=== PATIENT | female | born 1950 | race Caucasian/White ===

== ENCOUNTER 2019-08-17 09:48 | Emergency (ER) | payer MEDICARE, OTHER ==
[~2019-08-17] VITALS: Ht 167.6 cm; Wt 56.7 kg
--- OUTSIDE RECORDS SUMMARY | ~2019-08-17 | XMS | Clinical Summary ---
Demographics + + + | Address | [address] | | | [place] [address] | + + + | Home Phone | | + + + | Preferred Language | Unknown | + + + | Marital Status | | + + + | Zoroastrian Affiliation | 1013 | + + + | Race | Unknown | + + + | Ethnic Group | Unknown | + + + Author + + + | Author | [facility] | | | and Leifana | + + + | Organization | [facility] | | | and [place] | + + + | Address | Unknown | + + + | Phone | Unavailable | + + + Support + + +---------+ + | Name | Relationship | Address | Phone | + + +---------+ + | Keyonna Quesada | ECON | Unknown | | + + +---------+ + Care Team Providers + +------+ + | Care Attorney Name | Role | Phone | + +------+ + | Nely Reed | PCP | | | PA-C | | | + +------+ + Allergies + + + +--------+ + | Active Allergy | Reactions | Severity | Noted | Comments | | | | | Date | | + + + +--------+ + | Oxcarbazepine | | | | | + + + +--------+ + | Sulfa Antibiotics | Hives, Rash | Low | | | + + + +--------+ + Medications + + + +---------+------+------+-------+ | Medication | Sig | Dispensed | Refills | Star | End | Statu | | | | | | t | Date | s | | | | | | Date | | | + + + +---------+------+------+-------+ | estradiol | 25mcg two times a | | 0 | 09/1 | | Activ | | (VAGIFEM) 25 MCG | week for estrogen | | | 3/20 | | e | | vaginal tablet | treatment | | | 12 | | | + + + +---------+------+------+-------+ | traZODone | 2 by mouth at | | 0 | 09/1 | | Activ | | (DESYREL) 100 mg | bedtime | | | 3/20 | | e | | tablet | | | | 12 | | | + + + +---------+------+------+-------+ | citalopram | Take 20 mg by mouth | | 0 | | | Activ | | (CELEXA) 20 mg | Daily. | | | | | e | | tablet | | | | | | | + + + +---------+------+------+-------+ | clonazePAM | Take 0.5 mg by mouth | | 0 | | | Activ | | (KLONOPIN) 0.5 mg | Twice daily as | | | | | e | | tablet | needed for Anxiety. | | | | | | + + + +---------+------+------+-------+ | gabapentin | Take 600 mg by mouth | | 0 | | | Activ | | (NEURONTIN) 600 MG | 2 times daily. | | | | | e | | tablet | | | | | | | + + + +---------+------+------+-------+ | ziprasidone | Take 60 mg by mouth | | 0 | | | Activ | | (GEODON) 60 MG | nightly. | | | | | e | | capsule | | | | | | | + + + +---------+------+------+-------+ | lubiprostone | Take 1 capsule by | 60 | 5 | 08/1 | | Activ | | (AMITIZA) 24 mcg | mouth 2 times daily | capsule | | 2/20 | | e | | capsule | (with breakfast & | | | 19 | | | | | dinner). | | | | | | + + + +---------+------+------+-------+ Active Problems + + + | Problem | Noted Date | + + + | DIVERTICULOSIS OF COLON | | + + + | DEPRESSION | | + + + | BIPOLAR DISORDER UNSPECIFIED | | + + + + + | Overview: ICD-10 Record update | + + + +---+ | OBSESSIVE-COMPULSIVE DISORDER | | + +---+ | FAMILY HISTORY COLONIC POLYPS | | + +---+ Encounters +--------+ + + + + | Date | Type | Specialty | Care Team | Description | +--------+ + + + + | 06/26/ | Orders Only | Gastroenterology | Merrick Batista MD | | | 2019 | | | | | +--------+ + + + + from Last 3 Months Family History + + +------+ + | Medical History | Relation | Name | Comments | + + +------+ + | Hypertension | Father | | | + + +------+ + | Prostate cancer | Father | | | + + +------+ + | Macular degen | Mother | | | + + +------+ + | Other (see comment) | Mother | | Idiopathic pulmonary fibrosis (fatal) | + + +------+ + | Breast cancer | Sister | | | + + +------+ + + +------+ + + | Relation | Name | Status | Comments | + +------+ + + | Father | | | | + +------+ + + | Mother | | | | + +------+ + + | Sister | | Alive | | + +------+ + + | Sister | | Alive | | + +------+ + + Social History + + + +--------+ + | Tobacco Use | Types | Packs/Day | Years | Date | | | | | Used | | + + + +--------+ + | Former Smoker | Cigarettes | 3 | | Quit: 1989 | + + + +--------+ + + +---+---+---+ | Smokeless Tobacco: | | | | | Never Used | | | | + +---+---+---+ + + +---------+ + | Alcohol Use | Drinks/We | oz/Week | Comments | | | ek | | | + + +---------+ + | Yes | | | Rare | + + +---------+ + + + + | Sex Assigned at | Date Recorded | | | | + + + | Not on file | | + + + + + + + | Job Start Date | Occupation | Industry | + + + + | Not on file | Not on file | Not on file | + + + + + + + + | Travel History | Travel Start | Travel End | + + + + + + | No recent travel history available. | + + Last Filed Vital Signs + + + + | Vital Sign | Reading | Time Taken | + + + + | Blood Pressure | 130/70 | 03/15/20181313 PDT | + + + + | Pulse | 89 | 03/15/20181313 PDT | + + + + | Temperature | - | - | + + + + | Respiratory Rate | 16 | 03/15/20181313 PDT | + + + + | Oxygen Saturation | - | - | + + + + | Inhaled Oxygen | - | - | | Concentration | | | + + + + | Weight | 60.2 kg (132 lb 11.5 | 03/15/20181313 PDT | | | oz) | | + + + + | Height | 166.4 cm (5' 5.5") | 03/15/20181313 PDT | + + + + | Body Mass Index | 21.75 | 03/15/20181313 PDT | + + + + Plan of Treatment + + + + + | Health Maintenance | Due Date | Last Done | Comments | + + + + + | Hepatitis C | | | | | Screening | 1 | | | + + + + + | Vaccine: | | | | | Dtap/Tdap/Td (1 - | 0 | | | | Tdap) | | | | + + + + + | Vaccine: Zoster (1 | | | | | of 2) | 1 | | | + + + + + | Breast Cancer | | | | | Screening | 6 | | | + + + + + | Adult Annual | | | | | Wellness Visit | 5 | | | + + + + + | Vaccine: | | | | | Pneumococcal 65+ | 6 | | | | Low/Medium Risk (1 | | | | | of 2 - PCV13) | | | | + + + + + | Vaccine: Influenza | | | | | (#1) | 9 | | | + + + + + | Colorectal Cancer | | 11/15/2010, 08/24/2008 | | | Screening | 1 | | | | (Colonoscopy) | | | | + + + + + Results Not on filefrom Last 3 Months Insurance + +--------+ +--------+ +---------+--------+ | Payer | Benefi | Subscriber | Effect | Phone | Address | Type | | | t Plan | ID | timo | | | | | | / | | Dates | | | | | | Group | | | | | | + +--------+ +--------+ +---------+--------+ | MEDICARE | MEDICA | [id number] | 06/15/20 | [phone] | | Medica | | | RE | | 16-Pre | 5 | | re | | | PART A | | sent | | | | | | AND B | | | | | | + +--------+ +--------+ +---------+--------+ + +--------+ +--------+ + + | Guarantor Name | Accoun | Relation to | Date | Phone | Billing Address | | | t Type | Patient | of | | | | | | | | | | + +--------+ +--------+ + + | Tracee Ortiz | Person | Self [birth year] | [address] | | | al/Fam | | 1950 | [phone] | [place] [address] | | | [place] | | | 7 (Home) | | | | | | | [phone] | | | | | | | 1 (Work) | | + +--------+ +--------+ + + Advance Directives Patient has advance care planning documents on file. For more information, please contact:[facility] [place] [address]
--- OUTSIDE RECORDS SUMMARY | ~2019-08-17 | XMS | Encounter Summary ---
Demographics + + + | Address | [address] | | | [place] [address] | + + + | Home Phone | | + + + | Preferred Language | Unknown | + + + | Marital Status | Single | + + + | Confucianist Affiliation | Unknown | + + + | Race | White | + + + | Ethnic Group | Not or | + + + Author + + + | Author | [facility] | + + + | Organization | [facility] | + + + | Address | Unknown | + + + | Phone | Unavailable | + + + Support + + +---------+ + | Name | Relationship | Address | Phone | + + +---------+ + | Shaunna Ramirez | ECON | Unknown | | + + +---------+ + Care Team Providers + +------+ + | Care Manager Creative Name | Role | Phone | + +------+ + | Fransico Thomson MD | PCP | Unavailable | + +------+ + Encounter Details +--------+ + + + + | Date | Type | Department | Care Team | Description | +--------+ + + + + | 04/17/ | Document-Sc | UNKNOWN DEPARTMENT | Unknown . | | | 2012 | anned | [address] | | | | | | [address] | | | | | | [place], [place] | | | | | | [address] | | | +--------+ + + + + Social History + +-------+ +--------+------+ | Tobacco Use | Types | Packs/Day | Years | Date | | | | | Used | | + +-------+ +--------+------+ | Never Assessed | | | | | + +-------+ +--------+------+ + + + | Sex Assigned at [...] recent travel history available. | + + documented as of this encounter Plan of Treatment Not on filedocumented as of this encounter Procedures + +--------+ + + + | Procedure Name | Priori | Date/Time | Associated Diagnosis | Comments | | | ty | | | | + +--------+ + + + | RADIOLOGY | | 04/17/2013 | | Results for this | | | | 12:00 AM | | procedure are in the | | | | PDT | | results section. | + +--------+ + + + documented in this encounter Results RADIOLOGY (04/17/2013 12:00 AM PDT) + + + | Narrative | Performed At | + + + | | | | | | + + + + + | Procedure Note | + + | Viet Lima - 05/16/2013 1:21 PM PDT | + + documented in this encounter Visit Diagnoses Not on filedocumented in this encounter"
--- OUTSIDE RECORDS SUMMARY | ~2019-08-17 | XMS | Encounter Summary ---
Demographics + + + | Address | [address] | | | [place] [address] | + + + | Home Phone | | + + + | Preferred Language | Unknown | + + + | Marital Status | Single | + + + | Quaker Affiliation | Unknown | + + + | Race | White | + + + | Ethnic Group | Not or | + + + Author + + + | Author | [facility] | + + + | Organization | [facility] | + + + | Address | Unknown | + + + | Phone | Unavailable | + + + Support + + +---------+ + | Name | Relationship | Address | Phone | + + +---------+ + | Shaunna Ramirez | ECON | Unknown | | + + +---------+ + Care Team Providers + +------+ + | Care Station Attendant Name | Role | Phone | + [...] [address] | | | | | | [place], [place] | | | | | | [address] | | | +--------+ + + + [...]
--- OUTSIDE RECORDS SUMMARY | ~2019-08-17 | XMS | Clinical Summary ---
Demographics + + + | Address | [address] | | | [place] [address] | + + + | Home Phone | | + + + | Preferred Language | Unknown | + + + | Marital Status | | + + + | Zoroastrianism Affiliation | 1013 | + + + | Race | Unknown | + + + | Ethnic Group | Unknown | + + + Author + + + | Author | [facility] | | | and Leifana | + + + | Organization | [facility] | | | and [place]ana | [...] Team Providers + +------+ + | Care Political Anthropologist Name | Role | Phone | + [...] +--------+ +---------+--------+ | MEDICARE | MEDICA | [id number] | 06/15/20 | [phone] | | Medica [...] | | al/Fam | | 1950 | [phone] | [place] [address] | | | [place] | | | 7 (Home) | | | | | | | [phone] | | | | | | | 1 (Work) | | + +--------+ +--------+ + + Advance Directives Patient has advance care planning documents on file. For more information, please contact:[facility] [place] [address]
--- OUTSIDE RECORDS SUMMARY | ~2019-08-17 | XMS | Encounter Summary ---
Demographics + + + | Address | [address] | | | [place] [address] | + + + | Home Phone | | + + + | Preferred Language | Unknown | + + + | Marital Status | | + + + | Mormonism Affiliation | 1013 | + + + | Race | Unknown | + + + | Ethnic Group | Unknown | + + + Author + + + | Author | [facility] | | | and Leifana | + + + | Organization | [facility] | | | and Leifana [...] Team Providers + +------+ + | Care Windows Application Packager Name | Role | Phone | + +------+ + | Nely Reed | PCP | | | PA-C | | | + +------+ + Encounter Details +--------+ + + + + | Date | Type | Department | Care Team | Description | +--------+ + + + + | 06/26/ | Orders Only | [facility] | Merrick Batista MD | | | 2019 | | GASTROENTEROLOGY | [address] | | | | | [address] [place] | [address] | | | | | [address] [place], [place] | [address] | | | | | [address] | | | | | | [phone] | | | +--------+ + + + + Social History + + + [...] Not on filedocumented as of this encounter Visit Diagnoses Not on filedocumented in this encounter"
--- OUTSIDE RECORDS SUMMARY | ~2019-08-17 | XMS | Encounter Summary ---
Demographics + + + | Address | [address] | | | [place] [address] | + + + | Home Phone | | + + + | Preferred Language | Unknown | + + + | Marital Status | | + + + | Anabaptist Affiliation | 1013 | + + + | Race | Unknown | + + + | Ethnic Group | Unknown | + + + Author + + + | Author | [facility] | | | and Leifana | + + + | Organization | [facility] | | | and Leifana [...] Providers + +------+ + | Care Manager Copy Name | Role | Phone | + [...] 2019 | | GASTROENTEROLOGY | [address] | | | | | [address] [place] | [address] | | | | | [address] [place], [place] | [address] | | | | | [address] | | | | | | [phone] | | | +--------+ + + + [...]
--- OUTSIDE RECORDS SUMMARY | ~2019-08-17 | XMS | Clinical Summary ---
Demographics + + + | Address | [address] | | | [place] [address] | + + + | Home Phone | | + + + | Preferred Language | Unknown | + + + | Marital Status | Single | + + + | Hindu Affiliation | Unknown | + + + | Race | White | + + + | Ethnic Group | Not or | + + + Author + + + | Author | [facility] | + + + | Organization | [facility] | + + + | Address | Unknown | + + + | Phone | Unavailable | + + + Support + + +---------+ + | Name | Relationship | Address | Phone | + + +---------+ + | Shaunna Ramirez | ECON | Unknown | | + + +---------+ + Care Team Providers + +------+ + | Care Hospitality Internship Name | Role | Phone | + +------+ + PCP | Unavailable | + +------+ + Source Comments ARASELI is fully live on both [facility] Amb[facility] and [facility] InPatient.[facility] Allergies Not on File Medications Not on file Active Problems Not on file Social History + +-------+ +--------+------+ | Tobacco [...] | + + Last Filed Vital Signs Not on file Plan of Treatment + + + + + | Health Maintenance | Due Date | Last Done | Comments | + + + + + | Pneumococcal | | | | | vaccination (1 of 2 | 6 | | | | - PCV13) | | | | + + + + + | Influenza (Flu) | | | | | vaccination (#1) | 9 | | | + + + + + Results Not on filefrom Last 3 Months Insurance + +--------+ +--------+ + +------+ | Payer | Benefi | Subscriber | Effect | Phone | Address | Type | | | t Plan | ID | timo | | | | | | / | | Dates | | | | | | Group | | | | | | + +--------+ +--------+ + +------+ | [employer] | PACIFI | [id number] | 06/15/20 | [phone] | [address] | PPO | | | [facility] | | 12-Pre | [phone] | [address] | | sent | | [place] | | | | | | | | , [place] | | | | | | | | [phone] | | + +--------+ +--------+ + +------+ + +--------+ +--------+ + + | Guarantor Name | Accoun | Relation to | Date | Phone | Billing Address | | | t Type | Patient | of | | | | | | | | | | + +--------+ +--------+ + + | Tracee Ortiz | Person | Self [birth year] | [address] | | | al/Fam | | 1949 | [phone] | [place] [address] | | | [place] | | | 7 (Home) | | + +--------+ +--------+ + +"
--- OUTSIDE RECORDS SUMMARY | ~2019-08-17 | XMS | Clinical Summary ---
Demographics + + + | Address | [address] | | | [place] [address] | + + + | Home Phone | | + + + | Preferred Language | Unknown | + + + | Marital Status | Single | + + + | Yazidi Affiliation | Unknown | + + + [...] Team Providers + +------+ + | Care Flat Machine Cutter Name | Role | Phone | + +------+ + PCP | Unavailable | + +------+ + Source Comments ARASELI is fully live on both [facility] Ambulatory and [facility] InPatient.[facility] Allergies Not on File Medications Not on [...] [facility] | | 12-[address] | [phone] | | | [address] | | sent | | [place] | | | | | | | | , [place] | | | | | | | | [phone] | | + +--------+ +--------+ + +------+ [...] | 1949 | [phone] | [place] [address] | | | [place] | | | 7 (Home) | | + +--------+ +--------+ + +"
[~2019-08-17 09:48] MED LIST: ANUSOL-HC25 MG RC; CELEXA40 MG PO; CIPRO500 MG PO; CLONAZEPAM0.5 MG PO; COREG3.125 MG PO; FLAGYL500 MG PO; NORCO 5-325 TA1 EACH PO; TRAZODONE HCL100 MG PO; VICODIN 5-5001 EACH PO
--- OUTSIDE RECORDS SUMMARY | 2019-08-17 09:50 | XMS ---
PreManage Notification: CHRISTINA TRINH Security Director Of In Service Education Events No recent Security Events currently on file CRITERIA MET - PDMP CARE PROVIDERS Nely Bundy Current PAC PHONE: Unknown Angelina has no Care Guidelines for this patient. E.DDianelys VISIT COUNT (12 MO.) 1 ISAEL Knight TOTAL 1 NOTE: Visits indicate total known visits. ED/UCC VISIT TRACKING (12 MO.) 08/17/2019 09:48 ISAEL Reynolds [place] TYPE: Emergency COMPLAINT: - ABD PAIN INPATIENT VISIT TRACKING (12 MO.) No inpatient visits to display in this time frame [id number]
[2019-08-17] MEDS ORDERED: PROZAC10 MG PO (10:14)
[2019-08-17] MEDS ORDERED: AMITIZA24 MCG PO (10:16)
[2019-08-17] MEDS ORDERED: NEURONTIN600 MG PO (10:17)
[2019-08-17] MEDS ORDERED: ZIPRASIDONE HCL80 MG PO (10:17)
[2019-08-17] MEDS ORDERED: CIPRO500 MG PO (12:32)
[2019-08-17] MEDS ORDERED: FLAGYL500 MG PO (12:32)
== END 2019-08-17 13:00 | disposition home or self-care (01) ==
LOC: ED 09:48
DX: K57.32 Diverticulitis of large intestine without perforation or abscess without bleeding (principal); F31.9 Bipolar disorder, unspecified; Z88.2 Allergy status to sulfonamides; Z79.899 Other long term (current) drug therapy
CPT/HCPCS: 74176; 81001; 96374; 99284-25; J1885